=== PATIENT | male | born 1990 | race African-American/Black ===

== ENCOUNTER 2018-03-07 11:04 | Emergency (ER) | payer OTHER ==
[2018-03-07] MEDS: LIDOCAINE 1% (MDV) 10 ML INJ INJ (12:18)
[2018-03-07] MEDS: CEFTRIAXONE 1 GM INJ IM (12:18)
== END 2018-03-07 12:49 | disposition home or self-care (01) ==
LOC: FTE 11:04
DX: S81.811A Laceration without foreign body, right lower leg, initial encounter (principal); W25.XXXA Contact with sharp glass, initial encounter; Y92.9 Unspecified place or not applicable; Z87.891 Personal history of nicotine dependence
CPT/HCPCS: 73590; 96372; 99284-25

== ENCOUNTER 2018-03-17 07:06 | Inpatient (IN) | payer OTHER ==
[2018-03-17] MEDS: morphine 4 MG/ML VIAL IV (08:15)
[2018-03-17] MEDS: ONDANSETRON 4 MG INJ IV (08:15)
[2018-03-17] MEDS: SODIUM CHLORIDE 0.9% 1L BAG IV* (08:16)
[2018-03-17 08:41] LABS: ADD UMIC YES; UR ASCORBIC ACID NEGATIVE (NEGATIVE); UR BILIRUBIN (Dip) NEGATIVE (NEGATIVE); UR BLOOD (Dip) 1+ mg/dL (NEGATIVE); UR CLARITY CLEAR (CLEAR); UR COLOR YELLOW (YELLOW); UR GLUCOSE (Dip) NEGATIVE (NEGATIVE); UR KETONES (Dip) NEGATIVE (NEGATIVE); UR LEUKOCYTE ESTERASE (Dip) NEGATIVE Leu/ul (NEGATIVE); UR MUCUS FEW /HPF (NONE SEEN); UR NITRITE (Dip) NEGATIVE (NEGATIVE); UR RBC 1 /HPF (0-5); UR SPECIFIC GRAVITY (Dip) 1.023 (1.003-1.030); UR TOTAL PROTEIN (Dip) NEGATIVE (NEGATIVE); UR UROBILINOGEN (Dip) 1+ mg/dL (NEGATIVE); UR WBC 1 /HPF (0-5)
[2018-03-17 08:42] LABS: ADD MAN DIFF? NO
[2018-03-17 08:45] LABS: WHITE BLOOD COUNT 4.8 10^3/ul (4.8-10.8)
[2018-03-17 08:45] LABS: BASOPHIL # 0.1 10^3/ul (0.0-0.1); EOSINOPHILS # 0.2 10^3/ul (0.0-0.5); EOSINOPHILS % 3.4 % (0.0-7.0); HEMATOCRIT 41.8 % (42.0-52.0); HEMOGLOBIN 13.9 g/dl (14.0-18.0); LYMPHOCYTES # 1.5 10^3/ul (0.8-2.9); LYMPHOCYTES % 30.6 % (15.0-51.0); MEAN CORPUSCULAR HEMOGLOBIN 30.3 pg (29.0-33.0); MEAN CORPUSCULAR HGB CONC 33.3 g/dl (32.0-37.0); MEAN CORPUSCULAR VOLUME 91.3 fl (82.0-101.0); MEAN PLATELET VOLUME 9.1 fl (7.4-10.4); MONOCYTE # 0.4 10^3/ul (0.3-0.9); MONOCYTES % 8.4 % (0.0-11.0); NEUTROPHIL # 2.7 10^3/ul (1.6-7.5); NEUTROPHILS % 56.2 % (39.0-77.0); PLATELET COUNT 325 10^3/UL (140-415); RED BLOOD COUNT 4.58 10^6/ul (4.70-6.10); RED CELL DISTRIBUTION WIDTH 13.2 % (11.5-14.5)
[2018-03-17] MEDS: PIPER-TAZO 3.375 GM IV (PMX) 100 ML IVPB (08:53)
[2018-03-17 09:01] LABS: ALANINE AMINOTRANSFERASE 25 IU/L (13-69); ALBUMIN 3.9 g/dl (3.3-4.9); ALKALINE PHOSPHATASE 66 IU/L (42-121); ANION GAP 10 (8-16); ASPARTATE AMINO TRANSFERASE 25 IU/L (15-46); BILIRUBIN,INDIRECT 0.5 mg/dl (0-1.1); BILIRUBIN,TOTAL 0.5 mg/dl (0.2-1.3); BLOOD UREA NITROGEN 9 mg/dl (7-20); CALCIUM 8.9 mg/dl (8.4-10.2); CARBON DIOXIDE 23 mmol/L (21-31); CHLORIDE 110 mmol/L (97-110); CREATININE 0.73 mg/dl (0.61-1.24); GLUCOSE 88 mg/dl (70-220); POTASSIUM 4.3 mmol/L (3.5-5.1); SODIUM 139 mmol/L (135-144); TOTAL PROTEIN 7.8 g/dl (6.1-8.1)
[2018-03-17 09:05] LABS: C-REACTIVE PROTEIN 1.7 mg/dl (0.0-0.9)
[2018-03-17 09:12] LABS: INR 1.01; PROTIME 13.4 Sec (11.9-14.9)
[2018-03-17 09:13] LABS: PARTIAL THROMBOPLASTIN TIME 34.2 Sec (25.0-35.0)
[2018-03-17 09:16] LABS: LACTIC ACID 0.9 mmol/L (0.5-2.0)
[2018-03-17 09:33] LABS: AMPHETAMINE/METHAMPHETAMINE NEGATIVE (NEGATIVE); BARBITURATES NEGATIVE (NEGATIVE); BENZODIAZEPINES NEGATIVE (NEGATIVE); CANNABINOIDS POSITIVE (NEGATIVE); COCAINE NEGATIVE (NEGATIVE); OPIATES NEGATIVE (NEGATIVE)
[2018-03-17] MEDS: CLINDAMYCIN 900 MG/D5W (PMX) 50 ML IVPB (09:48)
[2018-03-17 09:52] LABS: ERYTHROCYTE SEDIMENTATION RATE 18 mm/Hr (0-15)
[2018-03-17] MEDS: VANCOMYCIN 1 GM (PMX) 250 ML IVPB (10:48)
[2018-03-17] MEDS: SOD CHLORIDE 0.9% 1,000 ML IV (13:11)
[2018-03-17] MEDS ORDERED: ACETAMINOPHEN 325 MG TAB PO (13:30)
[2018-03-17] MEDS ORDERED: ONDANSETRON 4 MG INJ IV (13:30)
[2018-03-17] MEDS ORDERED: HYDROCODONE/APAP (5/325) TAB PO (13:30)
[2018-03-17] MEDS ORDERED: IBUPROFEN 600 MG TAB PO (13:30)
[2018-03-17] MEDS ORDERED: DOCUSATE SODIUM 100 MG CAP PO (13:30)
[2018-03-17] MEDS ORDERED: VANCOMYCIN IV PER PHARMACY XX (13:30)
[2018-03-17] MEDS ORDERED: NACL 0.9% 3 ML SYG IV (13:30)
[2018-03-17] MEDS ORDERED: PENDING SANTYL ORDER FOR WOUND CARE XX (14:00)
[2018-03-17] MEDS: CEFTRIAXONE 1 GM/50 ML (PMX) 50 ML IVPB (14:35)
[2018-03-17] MEDS: FAMOTIDINE 20 MG TAB PO (20:41)
[2018-03-17] MEDS: VANCOMYCIN 1 GM 250 ML IVPB (20:41)
[2018-03-18] MEDS: SOD CHLORIDE 0.9% 1,000 ML IV (03:29)
[2018-03-18] MEDS: VANCOMYCIN 1 GM 250 ML IVPB (03:53)
== END 2018-03-18 08:06 | disposition left against medical advice (07) | DRG 603 ==
LOC: E/R 07:06 → PP2 09:27
DX: L03.115 Cellulitis of right lower limb (principal); F32.9 Major depressive disorder, single episode, unspecified; F17.200 Nicotine dependence, unspecified, uncomplicated
CPT/HCPCS: 73590; 80053; 80307; 81001; 83605; 85025; 85610; 85651; 85730; 86140; 87040; 87070; 96374; 96375; 99285-25; G0378

== ENCOUNTER 2018-06-24 07:52 | Emergency (ER) | payer OTHER | END 2018-06-24 09:09 | disposition home or self-care (01) | LOC: FTE 07:52 | DX: L91.0 Hypertrophic scar (principal); M79.89 Other specified soft tissue disorders; F17.210 Nicotine dependence, cigarettes, uncomplicated | CPT/HCPCS: 73590; 99283-25 ==